=== PATIENT | female | born 1940 | race Caucasian/White ===

== ENCOUNTER → 2017-02-25 | Day surgery (SDC) | payer MEDICARE, OTHER ==
[~2017-02-25] MED LIST: ACETAMINOPHEN/HYDROcodone 325 MG/5 MG TAB ONE; BUPIVACAINE/EPINEPHRINE 0.25% PF 30 ML VIAL ONE; ISOSULFAN BLUE 50 MG/5 ML VIAL SQ ONE; LACTATED RINGER'S 1000 ML INJ 1,000 ML ONE; MIDAZOLAM HCL 2 MG/2 ML VIAL ONE; NEOMYCIN/POLYMYXIN/BACITRACIN OINT 15 GM TUBE ONE; ONDANSETRON HCL 4 MG/2 ML VIAL IV PUSH ONE; PROPOFOL 200 MG/20 ML AMP IV ONE; ceFAZolin 2 GM PREMIX 50 ML ONE
--- NOTE | 2017-02-25 13:52 | TN ---
cc: MANDY CUEVA M.D. DATE OF SURGERY: 02/25/2017 PREOPERATIVE DIAGNOSIS Infiltrating ductal carcinoma right breast. POSTOPERATIVE DIAGNOSIS Infiltrating ductal carcinoma right breast. PROCEDURE PERFORMED 1. Needle-localized right breast lumpectomy. 2. Injection and excision sentinel lymph node right axilla. SURGEON Mandy Cueva MD [employer] Therese Nesbitt. ANESTHESIA General LMA. COMPLICATIONS None. INDICATION FOR PROCEDURE Ms. Montero is a pleasant 77-year-old female who was noted to have a mammographic abnormality in her right breast. She underwent percutaneous biopsy and this was found to be an infiltrating ductal carcinoma. She underwent MRI which showed a very small lesion on the right breast and no other areas of concern. She was offered lumpectomy versus mastectomy as well as sentinel lymph node excision. The patient was offered whole breast versus partial breast irradiation. The patient elected to have a needle-localized right breast lumpectomy as well as sentinel node excision and placement of a DARIAN. Risks and benefits of all the procedures were discussed with her and her and they were agreeable. DETAILS OF PROCEDURE The patient was identified, brought to the operating room and placed supine on the operating table. After adequate general anesthesia was achieved with LMA, the anterior right chest and axilla was prepped and draped in a standard surgical fashion. Prior to prepping and draping we injected 5 ccs of isosulfan blue in the periareolar position as well as along the wire localization. Attention was first directed to the right axilla. The proposed sentinel lymph node site had been marked by radiology downstairs. Using the probe we confirmed the site. 0.25% Marcaine was injected directly overlying the area that had been marked. A transverse incision was made. Dissection was carried down through subcutaneous tissue into the axilla proper. In the axilla proper we noted a blue dye going to two blue nodes. These nodes were grasped with an Allis clamp. They were confirmed to be hot with the probe. They were excised in toto together using electrocautery Bovie. Nodes were checked and found to have a 10-second count of 1641. These two nodes were labeled sentinel lymph node package and sent to pathology for analysis. Once these nodes were removed there was no other activity noted within the axilla. By direct visualization we could not see any other blue channels or blue nodes. By direct palpation I could not palpate any additional nodes. At this point I felt comfortable that we had the sentinel nodes that had been seen on the preoperative imaging. Wound was copiously irrigated with normal saline solution. Wound was injected with 10 ccs of 0.25% Marcaine. The wound was then closed in two layers using 3-0 and 4-0 Vicryl. Attention was now directed to the right breast. In the right breast the patient had a wire localization at about the 9 o'clock position of the right breast where the mass was located just behind the areola. The areolar complex was then injected with 0.25% Marcaine. A periareolar incision was made from about 7 o'clock to 10 o'clock. Subcutaneous skin flaps were then raised in all directions. Dissection proceeded first down to the wire which was identified in the lateral portion of the breast. Next using generous margins all breast tissue was excised around the wire including several centimeters past the base of the wire. The mass was noted to be at the base of the wire by imaging. The clip was demarcated at the hook in the wire but the mass itself was felt to be at the tip of the wire. We therefore took additional margins medially. All tissue was excised. The wire was then cut and brought into the surgical wound. Specimen was then retrieved. Short stitch was placed superior, long stitch was placed medial and the wire demarcated the lateral position. Specimen was sent to radiology where Dr. Arredondo reported the clip was present within the specimen. He stated that he did not see the mass but the mass was very hard to see on the preoperative imaging and he felt confident by us going beyond the base of the wire that we had the mass within the specimen. We went ahead and took an additional medial margin just to make sure. This was sent as a separate specimen. We then palpated some firm breast tissue in the retroareolar position. We excised this tissue as well as down to breast tissue and sent to pathology as a third specimen. Wound was then copiously irrigated with normal saline solution. Lumpectomy cavity was then evaluated with the CEV. CEV was placed in the lateral portion of the breast on the anterior axillary line. The tract was anesthetized with 0.25% Marcaine. The CEV was inflated with 30 ccs of saline. Lumpectomy cavity was then filled with local anesthetic and closed in two layers using a 3-0 and 4-0 Vicryl. Sterile dressings were applied. The patient was awakened and brought to recovery in stable condition. MD LATIA Pompa/LISA /1:15 PM /1:27 PM
== END | disposition home or self-care (01) ==
LOC: ESDC 06:30
PROVIDERS: ATTEND Surgery Trauma Surgery
DX: C50.911 Malignant neoplasm of unspecified site of right female breast (principal)
CPT/HCPCS: 00400; 01610; 19125; 38525; 38792; 88307; J0690; J2250; J2405; J3010; J7120; Q9968